=== PATIENT | male | born 1965 | race Caucasian/White ===

== ENCOUNTER 2018-12-29 20:56 | Emergency (ER) | payer OTHER ==
[~2018-12-29] VITALS: Ht 162.6 cm; Wt 65.8 kg
[2018-12-29] MEDS ORDERED: XANAX1 MG PO (21:07)
[2018-12-29] MEDS ORDERED: ADDERALL 20 MG20 MG PO (21:07)
[2018-12-29] MEDS ORDERED: VERAPAMIL E.R240 M1 PO (21:08)
[2018-12-29] MEDS ORDERED: KEFLEX500 M1 PO (21:10)
[2018-12-29 21:47] LABS: ABSOLUTE NEUTROPHILS 5.7 thou/uL (1.4-8.2); BASOPHILS 0.7 % (0.0-2.0); EOSINOPHILS 2.3 % (0.0-3.0); HEMATOCRIT 40.4 % (42.0-52.0); HEMOGLOBIN 13.6 gm/dL (14.0-18.0); LYMPHOCYTES 35.2 % (24.0-44.0); MCH 31.4 pg (26.0-34.0); MCHC 33.8 g/dL (28.0-37.0); MONOCYTES 4.5 % (1.0-8.0); PLATELET COUNT 261 thou/uL (150-400); POLYS 57.3 % (36.0-66.0); RBC 4.34 mil/uL (4.50-6.00); RDW 13.1 % (10.5-14.5); WBC 9.9 thou/uL (4.0-11.0)
[2018-12-29 21:53] LABS: CALCIUM 8.8 mg/dL (8.5-10.1); POTASSIUM 3.6 mmol/L (3.5-5.1)
[2018-12-29 22:15] LABS: AMP/METHAMP POSITIVE (Negative); BARBITURATES Negative (Negative); BENZODIAZEPINES POSITIVE (Negative); COCAINE Negative (Negative); METHADONE Negative (Negative); OPIATES Negative (Negative); PCP Negative (Negative)
[2018-12-29] MEDS ORDERED: CENTANY30 GM TOP (22:24)
[2018-12-29] MEDS ORDERED: IBUPROFEN 600600 M1 PO (22:26)
[2018-12-29] MEDS ORDERED: ACYCLOVIR 400400 MG PO (22:33)
[2018-12-29 22:40] VITALS: BP 160/104
== END 2018-12-29 22:45 | disposition home or self-care (01) ==
LOC: ER 20:56
PROVIDERS: Emergency Medicine
DX: S60.512A Abrasion of left hand, initial encounter (principal); S60.511A Abrasion of right hand, initial encounter; R00.0 Tachycardia, unspecified; I10 Essential (primary) hypertension; F17.210 Nicotine dependence, cigarettes, uncomplicated; Z86.19 Personal history of other infectious and parasitic diseases; X58.XXXA Exposure to other specified factors, initial encounter; Y93.89 Activity, other specified; Y92.89 Other specified places as the place of occurrence of the external cause; Y99.8 Other external cause status